=== PATIENT | female | born 1995 | race Caucasian/White ===

== ENCOUNTER 2021-08-01 17:53 | Emergency (ER) | payer OTHER, SELFPAY ==
--- NOTE | 2021-08-01 | ECG_ITS ---
Test Reason : sb Blood Pressure : / mmHG Vent. Rate : 058 BPM Atrial Rate : 058 BPM P-R Int : 166 ms QRS Dur : 078 ms QT Int : 442 ms P-R-T Axes : 078 088 072 degrees QTc Int : 433 ms Sinus bradycardia with marked sinus arrhythmia Otherwise normal ECG No previous ECGs available Referred By: Generic ED Physician Electronically Signed By:SRIDEVI TOLEDO MD
--- NOTE | ~2021-08-01 | CT_ITS ---
EXAMINATION: CT ABDOMEN AND PELVIS WITH CONTRAST CLINICAL INFORMATION: Abdominal pain COMPARISON: 01.16.2020 TECHNIQUE: Multidetector volumetric images were obtained from the superior aspect of the liver through the pubic symphysis following administration 85 mL of Omnipaque 350 intravenous contrast. Sagittal and coronal reformatted images were obtained on the technologist's workstation. Oral contrast: No This CT examination was performed using dose optimization techniques as appropriate, variously including the following: *Automated exposure control *Adjustment of mA and/or kV according to patient size (this includes techniques or standardized protocols for targeted exams where dose is matched to indication/reason for exam; i.e. extremities or head) *Use of iterative reconstruction technique DLP: 482 mGy-cm FINDINGS: LUNG BASES: The visualized lung bases are unremarkable. LIVER, GALLBLADDER, AND BILIARY TREE: The liver is normal in size, shape, and attenuation. No focal hepatic lesion or biliary ductal dilatation is present. Gallbladder unremarkable. PANCREAS: Unremarkable. SPLEEN: Unremarkable. ADRENAL GLANDS: Unremarkable. KIDNEYS AND URETERS: The kidneys are normal in size, shape, and attenuation. No hydronephrosis, hydroureter, or calculi seen. No perinephric stranding. BLADDER: Unremarkable. GASTROINTESTINAL TRACT: The small and large bowel are unremarkable. The appendix is unremarkable. ABDOMINAL WALL: No significant hernia is appreciated. LYMPH NODES: Normal. VASCULAR: Patent. There is prominent left gonadal vein and left periuterine vasculature which is nonspecific. PELVIC VISCERA: Uterus and right ovary unremarkable. Corpus luteum present within left ovary. OSSEOUS STRUCTURES: Unremarkable. CT/CT abdomen pelvis w con IMPRESSION: * No acute findings within the abdomen or pelvis. * Mild prominent left gonadal vein and left periuterine vasculature. This can be seen in association with pelvic venous congestion syndrome which can be a source of chronic pelvic pain, however is not necessarily clinically significant in this case. Fleischner guidelines were followed.
[2021-08-01 18:28] VITALS: BP 118/61; PULSE 53; RESP 18; TEMP 36.9; O2SAT 100; BMI 23.8
[2021-08-01 18:52] LABS: Appearance Urine CLOUDY; Color Urine DK YELLOW; Glucose Urine UA NEG (NEG); Hematocrit 39.7 % (37.0-47.0); Hemoglobin 13.7 g/dl (12.0-16.0); Leukocyte Esterase Urine NEG (NEG); Mean Corpuscular HGB Conc 34.5 g/dl (31.0-35.0); Mean Corpuscular Hemoglobin 29.7 pg (27.0-33.0); Mean Corpuscular Volume 86.1 fL (80.0-98.0); Mean Platelet Volume 11.6 fL (9.4-12.3); Nitrite Urine NEG (NEG); Platelet Count 321 X10*3/uL (160-400); Red Blood Count 4.61 X10*6/uL (4.20-5.50); Specific Gravity - Urine >= 1.030 (1.005-1.025); UACC Culture Trigger NO; Urine Blood NEG (NEG); Urine Ketones 40 MG/DL (NEG); Urine Protein 1+ MG/DL (NEG-TRACE)
[2021-08-01 18:54] LABS: WBC ABN SCTR FOR CBC 1
[2021-08-01 19:02] LABS: Bacteria Urine 4+ /LPF; Granular Casts Urine 0-2 /LPF; Mucus Urine 4+ /LPF; Squamous Epithelial Cell Urine 4+ /LPF; UACC CULT YES
[2021-08-01 19:18] LABS: Atypical Lymphs Percent Manual 4 % (0-6); Lymphocytes Percent Manual 42 % (20-40); Monocytes Percent Manual 2 % (2-11); Neutrophils Percent Manual 52 % (45-73)
[2021-08-01 19:19] LABS: Microcytosis 1+ (5-14) /OIF; Platelet Estimate NORMAL (NORMAL); RBC Morphology NOTED
[2021-08-01 19:20] LABS: Acanthocytes 1+ (0-2) /OIF; Burr Cells 1+ (0-2) /OIF; Platelet Morphology Comment NORMAL; Polychromasia 1+ (0-2) /OIF
[2021-08-01 19:37] LABS: Alanine Aminotransferase 11 U/L (0-31); Albumin Level 4.7 g/dL (3.5-5.0); Alkaline Phosphatase 67 U/L (39-117); Anion Gap 14 (12-20); Aspartate Amino Transferase 15 U/L (5-31); Bilirubin Total 0.7 mg/dL (0.0-1.0); Blood Urea Nitrogen 12 mg/dL (9-16); Calcium 9.9 mg/dL (8.4-10.2); Carbon Dioxide 22 mmol/L (22-29); Chloride 107 mmol/L (96-108); Creatinine Clr Calc Pharmacy 98.9; Estimated Glomerular Filt Rate > 60; Glucose Random 76 mg/dL (60-115); Potassium 3.3 mmol/L (3.3-5.1); Sodium 140 mmol/L (135-145); Total Protein 7.3 g/dL (6.5-8.0)
[2021-08-01 19:48] LABS: Atypical Lymph Absolute Manual 0.4 x10*3/uL; Lymphocytes Absolute Manual 4.1 X10*3/uL (1.2-4.9); Monocytes Absolute Manual 0.2 X10*3/uL (0.1-1.2); White Blood Count 9.7 X10*3/uL (4.8-10.8)
[2021-08-01 20:00] LABS: Band Neutrophils Percent 0 % (3-5)
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
[2021-08-01] MEDS: 0.9 % Sodium Chloride 2,000 ML 999 ML IV (22:17)
[2021-08-01] MEDS: Famotidine/PF 20 MG/2 ML VIAL IVPUSH (22:20)
[2021-08-01] MEDS: ondansetron HCL 4 MG/2 ML VIAL IVPUSH (22:20)
[2021-08-01 22:21] VITALS: BP 113/64; PULSE 50; RESP 16; O2SAT 99
[2021-08-01 22:36] LABS: HCG Quantitative < 2 mIU/mL
[2021-08-01] MEDS: iohexoL 350 MG/ML 100 ML INFUS..BTL IV (22:50)
[2021-08-01] MEDS: Lidocaine HCl Viscous 2 % 15 ML SOLUTION 10 ML MUCOUS MEM (23:23)
[2021-08-01] MEDS: Magnesium Hydrox/Alum Hydrox 30 ML ORAL.SUSP PO (23:23)
[2021-08-01 23:53] VITALS: BP 93/51; PULSE 51; RESP 18; TEMP 36.6; O2SAT 100
[2021-08-02] MEDS: Sucralfate Oral Suspension 1 GM/10 ML ORAL.SUSP PO (01:10)
== END 2021-08-02 02:00 | disposition home or self-care (01) ==
PROVIDERS: Emergency Provider Student in an Organized Health Care Education/Training Program
DX: K29.70 Gastritis, unspecified, without bleeding (principal); N81.4 Uterovaginal prolapse, unspecified; N94.89 Other specified conditions associated with female genital organs and menstrual cycle
CPT/HCPCS: 36415; 74177; 80053; 81001; 84702; 85007; 85027; 87086; 93005; 96361; 96374; 96375; 99284; J2405; Q9967

== ENCOUNTER 2021-10-11 23:42 | Emergency (ER) | payer OTHER, SELFPAY ==
[2021-10-11 23:57] VITALS: BP 139/79; PULSE 75; RESP 24; TEMP 36.6; O2SAT 97; BMI 23.3
[2021-10-12 00:11] LABS: MANUAL DIFF FLAG NO
[2021-10-12 00:14] LABS: Basophils Percent Auto 0.2 % (0-2); Eosinophils Absolute Auto 0.1 X10*3/uL (0.0-0.4); Eosinophils Percent Auto 0.7 % (0-4); Hematocrit 38.4 % (37.0-47.0); Hemoglobin 13.1 g/dl (12.0-16.0); Imm Gran Abs Auto 0.04 X10*3/uL (0.00-0.03); Imm Gran Pct Auto 0.3 % (0.0-0.4); Lymphocytes Absolute Auto 2.4 X10*3/uL (1.2-4.9); Lymphocytes Percent Auto 19.8 % (20-40); Mean Corpuscular HGB Conc 34.1 g/dl (31.0-35.0); Mean Corpuscular Volume 87.9 fL (80.0-98.0); Mean Platelet Volume 10.9 fL (9.4-12.3); Monocytes Absolute Auto 0.7 X10*3/uL (0.1-1.2); Neutrophils Absolute Auto 8.8 x10*3/uL (2.0-8.3); Platelet Count 309 X10*3/uL (160-400); Red Blood Count 4.37 X10*6/uL (4.20-5.50); Red Cell Distribution Width 13.4 % (11.0-16.0); White Blood Count 12.1 X10*3/uL (4.8-10.8)
[2021-10-12 00:29] LABS: Alanine Aminotransferase 13 U/L (0-31); Albumin Level 4.3 g/dL (3.5-5.0); Alkaline Phosphatase 56 U/L (39-117); Anion Gap 12 (12-20); Aspartate Amino Transferase 13 U/L (5-31); Bilirubin Total 0.5 mg/dL (0.0-1.0); Blood Urea Nitrogen 13 mg/dL (9-16); Calcium 9.5 mg/dL (8.4-10.2); Carbon Dioxide 24 mmol/L (22-29); Chloride 111 mmol/L (96-108); Estimated Glomerular Filt Rate > 60; Glucose Random 107 mg/dL (60-115); Potassium 3.7 mmol/L (3.3-5.1); Sodium 143 mmol/L (135-145); Total Protein 6.9 g/dL (6.5-8.0)
--- NOTE | 2021-10-12 00:31 | ED.ABDPAIN ---
HPI - Abdominal Pain General Chief Complaint: Abdominal Pain Stated Complaint: DETOX Time Seen by Provider: 10/12/21 00:30 Source: patient Mode of arrival: EMS Limitations: no limitations History of Present Illness HPI narrative: Patient with History of chronic abdominal pain with cannabinoid induced vomiting comes here for 3 days of nausea vomiting also complaining of constipation diffuse abdominal pain patient has been to different hospital multiple times for same no fever no chills Related Data Previous Rx's Medication Instructions Recorded ondansetron 4 mg disintegrating 4 mg PO Q6H PRN #10 tab 08/01/21 tablet sucralfate 100 mg/mL oral 10 ml PO QID #420 ml 08/01/21 suspension (Carafate) lorazepam 1 mg tablet (Ativan) 1 mg PO TID PRN #10 tab 10/12/21 ondansetron 4 mg disintegrating 4 mg PO Q6-8H PRN #14 tab 10/12/21 tablet pantoprazole 40 mg granules 40 mg PO DAILY #30 ea 10/12/21 delayed-release for susp in packet (Protonix) Allergies Allergy/AdvReac Type Severity Reaction Status Date / Time No Known Allergies Allergy Verified 08/01/21 18:27 Review of Systems Review of Systems Yes all other systems are reviewed and are negative [facility] Past Medical History Medical History No known health problems Social History Social History Advance Directives: No Physical Exam ED Vital Signs: Vital Signs - 24 hr 10/11/21 23:57 Temperature 97.8 F Pulse Rate 75 Respiratory Rate 24 H Blood Pressure 139/79 Pulse Oximetry 97 BMI result Body Mass Index 23.3 Appearance: Alert. Oriented X3. Anxious Eyes: No pallor/ icterus ENT: Pharynx normal. Oral Mucosa moist Neck: Normal inspection. Neck supple. CVS: Normal heart rate and rhythm. Pulses normal. Respiratory: No respiratory distress. Equal air entry bilateral, no wheezing/rales/rhonchi Abdomen: Soft and nontender. Bowel sounds are present, no mass palpable, no CVA tenderness Skin: Skin warm and dry. Normal skin color. Normal skin turgor. Extremities: No lower extremity edema. No calf tenderness Neuro: Oriented X 3. MDM - Abdominal Pain MDM Narrative Medical decision making narrative: Patient with cannabis induced vomiting anxiety came for similar episode of abdominal pain and vomiting responded to IV Ativan in the ER patient vomited coffee colored vomitus small amount no history of melena H&H stable likely from retching, . Patient H&H is stable 13.1/38.4 which is per records same in July, will watch patient in the ER for some time repeat H&H in 4 hours and dispo accordingly patient signed out to Dr. Avila pending repeat H&H Lab Data Attestation: I reviewed the patient's lab results. Result diagrams: 10/12/21 00:07 10/12/21 00:07 Labs: Lab Results 10/12/21 10/12/21 10/12/21 Range/Units 00:07 00:07 01:00 WBC 12.1 H (4.8-10.8) X10*3/uL RBC 4.37 (4.20-5.50) X10*6/uL Hgb 13.1 (12.0-16.0) g/dl Hct 38.4 (37.0-47.0) % MCV 87.9 (80.0-98.0) fL MCH 30.0 (27.0-33.0) pg MCHC 34.1 (31.0-35.0) g/dl RDW 13.4 (11.0-16.0) % Plt Count 309 (160-400) X10*3/uL MPV 10.9 (9.4-12.3) fL Immature Gran % (Auto) 0.3 (0.0-0.4) % Neut % (Auto) 73.0 (45-73) % Lymph % (Auto) 19.8 L (20-40) % [place] % (Auto) 6.0 (2-11) % Eos % (Auto) 0.7 (0-4) % Baso % (Auto) 0.2 (0-2) % Lymph # (Auto) 2.4 (1.2-4.9) X10*3/uL [place] # (Auto) 0.7 (0.1-1.2) X10*3/uL Eos # (Auto) 0.1 (0.0-0.4) X10*3/uL Baso # (Auto) 0.0 (0.0-0.2) X10*3/uL Abs Immat Gran (auto) 0.04 H (0.00-0.03) X10*3/uL Absolute Neuts (auto) 8.8 H (2.0-8.3) x10*3/uL Absolute Nucleated RBC 0.000 (0.0-0.012) X10*3/uL Nucleated RBC % (auto) 0.0 (0.0-0.2) /100WBC Sodium 143 (135-145) mmol/L Potassium 3.7 (3.3-5.1) mmol/L Chloride 111 H (96-108) mmol/L Carbon Dioxide 24 (22-29) mmol/L Anion Gap 12 (12-20) BUN 13 (9-16) mg/dL Creatinine 0.81 (0.5-1.4) mg/dL Estim Creat Clear Calc 93.0 Estimated GFR > 60 Random Glucose 107 (60-115) mg/dL Calcium 9.5 (8.4-10.2) mg/dL Total Bilirubin 0.5 (0.0-1.0) mg/dL AST 13 (5-31) U/L ALT 13 (0-31) U/L Alkaline Phosphatase 56 (39-117) U/L Total Protein 6.9 (6.5-8.0) g/dL Albumin 4.3 (3.5-5.0) g/dL Gastric Occult Blood POSITIVE H (NEG) Discharge Plan Discharge Clinical Impression: Intractable vomiting, Cannabis abuse with cannabis-induced anxiety disorder, Acute erosive gastritis Patient Disposition: Still a Patient Instructions: Acute Nausea and Vomiting (ED), Cannabis Abuse (ED) Additional Instructions: Stop using marijuana Take medication for gastritis and nausea as prescribed Prescriptions: New pantoprazole [Protonix] [address] for susp in packet 40 mg PO DAILY Qty: 30 0RF ondansetron 4 mg tablet,disintegrating 4 mg PO Q6-8H PRN (Reason: nausea and vomiting) Qty: 14 0RF lorazepam [Ativan] 1 mg tablet 1 mg PO TID PRN (Reason: anxiety) Qty: 10 0RF No Action sucralfate [Carafate] 100 mg/mL suspension 10 ml PO QID Qty: 420 0RF Rx Instructions: swish in mouth and swallow; use after food/drink ondansetron 4 mg tablet,disintegrating 4 mg PO Q6H PRN (Reason: nausea and vomiting) Qty: 10 0RF
[2021-10-12] MEDS: LORazepam 2 MG/ML VIAL IVPUSH (00:37)
--- NOTE | 2021-10-12 00:40 | PC.NURSE ---
LBM was yesterday
[2021-10-12] MEDS: 0.9 % Sodium Chloride 1,000 ML 999 ML IV ×2 (00:43→03:15)
[2021-10-12] MEDS: Prochlorperazine Edisylate 10 MG/2 ML VIAL IVPUSH (01:04)
[2021-10-12] MEDS: Famotidine/PF 20 MG/2 ML VIAL IVPUSH (01:04)
[2021-10-12 01:07] LABS: GASOB Int Neg Ctl Valid YES; GASOB Int Pos Ctl Valid YES
[2021-10-12 01:08] LABS: GASOB Lot 20512; Occult Blood Gastric POSITIVE (NEG)
--- NOTE | 2021-10-12 01:22 | PC.NURSE ---
Pt had emesis x 2. Total of approx [address] Moyer made aware Sample of vomitus collected, labeled and sent
[2021-10-12 02:57] VITALS: BP 105/55; PULSE 77; RESP 14; O2SAT 100
[2021-10-12 03:00] VITALS: TEMP 36.8
--- NOTE | 2021-10-12 03:30 | PC.NURSE ---
Pt resting on stretcher with eyes closed Breathing even and unlabored NAD Will continue to monitor
[2021-10-12 03:54] LABS: Hematocrit 38.4 % (37.0-47.0); Hemoglobin 12.9 g/dl (12.0-16.0)
== END 2021-10-12 04:11 | disposition home or self-care (01) ==
PROVIDERS: Internal Medicine; Emergency Provider Emergency Medicine
DX: K25.3 Acute gastric ulcer without hemorrhage or perforation (principal); F12.180 Cannabis abuse with cannabis-induced anxiety disorder; R11.10 Vomiting, unspecified
CPT/HCPCS: 36415; 80053; 82271; 85014; 85018; 85025; 96361; 96374; 96375; 99283; 99284; J2060

== ENCOUNTER 2021-11-10 02:58 | Emergency (ER) | payer OTHER, SELFPAY ==
--- NOTE | ~2021-11-10 | CT_ITS ---
EXAMINATION: CT ABDOMEN AND PELVIS WITHOUT CONTRAST CLINICAL INFORMATION: Abdominal pain and vomiting. Severe abdominal pain. COMPARISON: Most recent CT abdomen/pelvis dated 08/01/2021. TECHNIQUE: Multidetector volumetric imaging was performed from the superior aspect of the liver through the pubic symphysis. Sagittal and coronal reformatted images were obtained on the technologist's workstation. This CT examination was performed using dose optimization techniques as appropriate, variously including the following: *Automated exposure control *Adjustment of mA and/or kV according to patient size (this includes techniques or standardized protocols for targeted exams where dose is matched to indication/reason for exam; i.e. extremities or head) *Use of iterative reconstruction technique DLP: 399 mGy-cm FINDINGS: LUNG BASES: The visualized lung bases are unremarkable. LIVER, GALLBLADDER, AND BILIARY TREE: The liver is normal in size, shape, and attenuation. No focal hepatic lesion or biliary ductal dilatation is present. The gallbladder is unremarkable with no evidence of radiopaque gallstones, gallbladder wall thickening, or obvious pericholecystic inflammatory changes. PANCREAS: Unremarkable. SPLEEN: Unremarkable. ADRENAL GLANDS: Unremarkable. KIDNEYS AND URETERS: The kidneys are normal in size, shape, and attenuation. No hydronephrosis, hydroureter, or calculi seen. No perinephric stranding. BLADDER: Unremarkable. GASTROINTESTINAL TRACT: Evaluation limited due to underdistention and lack of oral/IV contrast. No small- or large-bowel obstruction. No significant wall thickening or inflammatory change. Unremarkable appendix. PERITONEAL CAVITY: No intra-abdominal free air or free fluid. No intra-abdominal mass or organized fluid collection/abscess formation. ABDOMINAL WALL: No significant hernia is appreciated. LYMPH NODES: No significant lymphadenopathy, however, evaluation limited without IV contrast. VASCULAR: Unremarkable. PELVIC VISCERA: Grossly unremarkable on noncontrast imaging. The previously seen vascular prominence not appreciated without IV contrast. OSSEOUS STRUCTURES: Unremarkable. CT/CT abdomen pelvis wo con IMPRESSION: No acute intra-abdominal or pelvic findings to explain the patient's pain. Fleischner guidelines were followed.
[2021-11-10 03:01] VITALS: BP 130/80; BP 135/70; PULSE 90; RESP 20; TEMP 37.1; O2SAT 100; BMI 40.3
--- NOTE | 2021-11-10 03:22 | PC.NURSE ---
pt screaming out in pain, this RN attempt to place pt IV and educated pt on importance of urine sample, pt continues to scream out in pain, pt states she is too nauseous right now MD to be made aware.
[2021-11-10] MEDS: Magnesium Hydrox/Alum Hydrox 30 ML ORAL.SUSP PO (03:33)
[2021-11-10] MEDS: Lidocaine HCl Viscous 2 % 15 ML SOLUTION 10 ML MUCOUS MEM (03:33)
[2021-11-10] MEDS: Ondansetron ODT 4 MG TAB.RAPDIS TRANSLINGU (03:33)
--- NOTE | 2021-11-10 03:36 | PC.NURSE ---
RN attempt to start IV and draw labs on patient, pt crying, curled up in a ball and states he stomach hurts too bad and would like this RN to hold off on drawing labs, pt medicated per MAR. this RN will try again.
--- NOTE | 2021-11-10 03:51 | PC.NURSE ---
pt continues to be yelling and be disrespectful to staff. Charge nurse Sheeba into assess the situation, but continues be argumentative with charge. This Clinical coordinator went into assess situation pt also continued to be argumentative and aggressive.
[2021-11-10 03:57] LABS: Basophils Absolute Auto 0.1 X10*3/uL (0.0-0.2); Basophils Percent Auto 0.4 % (0-2); Eosinophils Absolute Auto 0.1 X10*3/uL (0.0-0.4); Eosinophils Percent Auto 0.4 % (0-4); Hematocrit 40.7 % (37.0-47.0); Hemoglobin 13.8 g/dl (12.0-16.0); Imm Gran Abs Auto 0.04 X10*3/uL (0.00-0.03); Imm Gran Pct Auto 0.3 % (0.0-0.4); Lymphocytes Absolute Auto 2.8 X10*3/uL (1.2-4.9); Lymphocytes Percent Auto 21.2 % (20-40); MANUAL DIFF FLAG NO; Mean Corpuscular HGB Conc 33.9 g/dl (31.0-35.0); Mean Corpuscular Hemoglobin 29.8 pg (27.0-33.0); Mean Corpuscular Volume 87.9 fL (80.0-98.0); Mean Platelet Volume 11.1 fL (9.4-12.3); Monocytes Absolute Auto 0.6 X10*3/uL (0.1-1.2); Monocytes Percent Auto 4.3 % (2-11); Neutrophils Absolute Auto 9.8 x10*3/uL (2.0-8.3); Neutrophils Percent Auto 73.4 % (45-73); Platelet Count 388 X10*3/uL (160-400); Red Blood Count 4.63 X10*6/uL (4.20-5.50); White Blood Count 13.4 X10*3/uL (4.8-10.8)
--- NOTE | 2021-11-10 04:17 | ED.ABDPAIN ---
HPI - Abdominal Pain General Chief Complaint: Abdominal Pain Stated Complaint: Abd Pain Time Seen by Provider: 11/10/21 03:04 Source: patient Mode of arrival: EMS History of Present Illness HPI narrative: 26-year-old female, known THC smoker arrives via EMS with complaints of severe abdominal pain and also has complaints rectal bleeding and reports known hemorrhoids. Otherwise, denies any fevers or chills and states she has known stomach problems which was corroborated after review of her records with diagnoses such as erosive gastritis. Related Data Previous Rx's Medication Instructions Recorded ondansetron 4 mg disintegrating 4 mg PO Q6H PRN #10 tab 08/01/21 tablet sucralfate 100 mg/mL oral 10 ml PO QID #420 ml 08/01/21 suspension (Carafate) lorazepam 1 mg tablet (Ativan) 1 mg PO TID PRN #10 tab 10/12/21 ondansetron 4 mg disintegrating 4 mg PO Q6-8H PRN #14 tab 10/12/21 tablet pantoprazole 40 mg granules 40 mg PO DAILY #30 ea 10/12/21 delayed-release for susp in packet (Protonix) Allergies Allergy/AdvReac Type Severity Reaction Status Date / Time No Known Allergies Allergy Verified 08/01/21 18:27 Review of Systems Review of Systems Pertinent positives and negatives as stated in HPI 10 point review of systems is otherwise negative. PMFSH Past Medical History Source: nursing notes reviewed Medical History No known health problems Social History Social History Advance Directives: No Advance Directives Information Provided: No Physical Exam ED Vital Signs: Vital Signs - 24 hr 11/10/21 03:01 11/10/21 05:39 11/10/21 05:50 Temperature 98.8 F 97.6 F 98.4 F Pulse Rate 90 64 70 Respiratory Rate 20 20 18 Blood Pressure 130/80 136/86 122/88 Pulse Oximetry 100 96 100 BMI result Body Mass Index 40.3 VITAL SIGNS: Reviewed. GENERAL: Well developed, well nourished, in moderate to severe distress. HEAD: Normocephalic/atraumatic EYES: PERRLA, EOMI EARS: Ext canals without abnormality OROPHARYNX: no oral lesions noted, posterior pharynx clear LUNGS: Normal breath sounds. No adventitious sounds or accessory muscle use. SpO2<100> CARDIOVASCULAR: Regular rate and rhythm without noted murmurs ABDOMEN: Soft, epigastric tenderness on palpation without rebound, non-distended with bowel sounds. SKIN: Inspection of the skin reveals no rashes NEUROLOGIC: Alert and oriented x 4. Strength and sensation to light touch were grossly intact x 4. Course Course Course Narrative: 26-year-old female with history and clinical presentation consistent with underlying diagnosis of gastritis. Patient will be volume resuscitated, provided with antacid medications/gastritis medications as well as pain medications. On review of all investigations there are no acute findings to suggest anemia, infection as the noted leukocytosis this suspected to be secondary to stress response as patient is afebrile and urinalysis is negative for infection. Nursing staff had an accidental needlestick injury and patient agreed to being HIV and hepatitis C tested. Patient received multiple rounds fluids, antiemetics, gastritis medications and obtain an EKG to verify no QT prolongation and then administered 5 mg of Haldol IM. All investigations reviewed without acute findings of leukocytosis is likely reactive to patient's nausea and vomiting. Patient signed out to Dr. Osman. MDM - Abdominal Pain Lab Data Result diagrams: 11/10/21 03:45 11/10/21 03:45 Labs: Lab Results 11/10/21 11/10/21 11/10/21 Range/Units 03:45 03:45 03:45 WBC 13.4 H (4.8-10.8) X10*3/uL RBC 4.63 (4.20-5.50) X10*6/uL Hgb 13.8 (12.0-16.0) g/dl Hct 40.7 (37.0-47.0) % MCV 87.9 (80.0-98.0) fL MCH 29.8 (27.0-33.0) pg MCHC 33.9 (31.0-35.0) g/dl RDW 14.0 (11.0-16.0) % Plt Count 388 D (160-400) X10*3/uL MPV 11.1 (9.4-12.3) fL Immature Gran % (Auto) 0.3 (0.0-0.4) % Neut % (Auto) 73.4 H (45-73) % Lymph % (Auto) 21.2 (20-40) % [place] % (Auto) 4.3 (2-11) % Eos % (Auto) 0.4 (0-4) % Baso % (Auto) 0.4 (0-2) % Lymph # (Auto) 2.8 (1.2-4.9) X10*3/uL [place] # (Auto) 0.6 (0.1-1.2) X10*3/uL Eos # (Auto) 0.1 (0.0-0.4) X10*3/uL Baso # (Auto) 0.1 (0.0-0.2) X10*3/uL Abs Immat Gran (auto) 0.04 H (0.00-0.03) X10*3/uL Absolute Neuts (auto) 9.8 H (2.0-8.3) x10*3/uL Absolute Nucleated RBC 0.000 (0.0-0.012) X10*3/uL Nucleated RBC % (auto) 0.0 (0.0-0.2) /100WBC Sodium 143 (135-145) mmol/L Potassium 4.3 (3.3-5.1) mmol/L Chloride 111 H (96-108) mmol/L Carbon Dioxide 19 L (22-29) mmol/L Anion Gap 17 (12-20) BUN 14 (9-16) mg/dL Creatinine 0.79 (0.5-1.4) mg/dL Estim Creat Clear Calc 135.4 Estimated GFR > 60 Random Glucose 105 (60-115) mg/dL Calcium 10.1 D (8.4-10.2) mg/dL Total Bilirubin 0.5 (0.0-1.0) mg/dL Direct Bilirubin 0.2 (0.0-0.5) mg/dL AST 21 D (5-31) U/L ALT 21 (0-31) U/L Alkaline Phosphatase 63 (39-117) U/L Total Protein 7.8 (6.5-8.0) g/dL Albumin 4.7 (3.5-5.0) g/dL Amylase 49 (28-100) U/L Lipase 12 (8-78) U/L Urine Color Urine Appearance Urine pH (5.0-8.0) Ur Specific [place] (1.005-1.025) Urine Protein (NEG-TRACE) MG/DL Urine Glucose (UA) (NEG) MG/DL Urine Ketones (NEG) MG/DL Urine Blood (NEG) Urine Nitrite (NEG) Ur Leukocyte Esterase (NEG) Urine RBC (0) /HPF Urine WBC (0-4) /HPF Ur Squamous Epith Cells /LPF Urine Bacteria /LPF Hyaline Casts /LPF Urine Mucus /LPF Urine Test (NEGATIVE) Urine Opiates Screen (Not Detect) Urine Fentanyl Screen (Not Detect) Ur Barbiturates Screen (Not Detect) Ur Phencyclidine Scrn (Not Detect) Ur Amphetamines Screen (Not Detect) U Benzodiazepines Scrn (Not Detect) Urine Cocaine Screen (Not Detect) U Marijuana (THC) Screen (Not Detect) Ethyl Alcohol mg/dL HIV 1&2 Ab/P24 Ag 4thGn Nonreactive (Nonreactive) 11/10/21 11/10/21 11/10/21 Range/Units 03:45 04:09 04:09 WBC (4.8-10.8) X10*3/uL RBC (4.20-5.50) X10*6/uL Hgb (12.0-16.0) g/dl Hct (37.0-47.0) % MCV (80.0-98.0) fL MCH (27.0-33.0) pg MCHC (31.0-35.0) g/dl RDW (11.0-16.0) % Plt Count (160-400) X10*3/uL MPV (9.4-12.3) fL Immature Gran % (Auto) (0.0-0.4) % Neut % (Auto) (45-73) % Lymph % (Auto) (20-40) % [place] % (Auto) (2-11) % Eos % (Auto) (0-4) % Baso % (Auto) (0-2) % Lymph # (Auto) (1.2-4.9) X10*3/uL [place] # (Auto) (0.1-1.2) X10*3/uL Eos # (Auto) (0.0-0.4) X10*3/uL Baso # (Auto) (0.0-0.2) X10*3/uL Abs Immat Gran (auto) (0.00-0.03) X10*3/uL Absolute Neuts (auto) (2.0-8.3) x10*3/uL Absolute Nucleated RBC (0.0-0.012) X10*3/uL Nucleated RBC % (auto) (0.0-0.2) /100WBC Sodium (135-145) mmol/L Potassium (3.3-5.1) mmol/L Chloride (96-108) mmol/L Carbon Dioxide (22-29) mmol/L Anion Gap (12-20) BUN (9-16) mg/dL Creatinine (0.5-1.4) mg/dL Estim Creat Clear Calc Estimated GFR Random Glucose (60-115) mg/dL Calcium (8.4-10.2) mg/dL Total Bilirubin (0.0-1.0) mg/dL Direct Bilirubin (0.0-0.5) mg/dL AST (5-31) U/L ALT (0-31) U/L Alkaline Phosphatase (39-117) U/L Total Protein (6.5-8.0) g/dL Albumin (3.5-5.0) g/dL Amylase (28-100) U/L Lipase (8-78) U/L Urine Color YELLOW Urine Appearance HAZY Urine pH 5.5 (5.0-8.0) Ur Specific [place] >= 1.030 H (1.005-1.025) Urine Protein 1+ H (NEG-TRACE) MG/DL Urine Glucose (UA) NEG (NEG) MG/DL Urine Ketones NEG (NEG) MG/DL Urine Blood 3+ H (NEG) Urine Nitrite NEG (NEG) Ur Leukocyte Esterase NEG (NEG) Urine RBC 5-9 H (0) /HPF Urine WBC 1-4 (0-4) /HPF Ur Squamous Epith Cells 2+ /LPF Urine Bacteria 2+ /LPF Hyaline Casts 1-4 /LPF Urine Mucus 3+ /LPF Urine Test NEGATIVE (NEGATIVE) Urine Opiates Screen (Not Detect) Urine Fentanyl Screen (Not Detect) Ur Barbiturates Screen (Not Detect) Ur Phencyclidine Scrn (Not Detect) Ur Amphetamines Screen (Not Detect) U Benzodiazepines Scrn (Not Detect) Urine Cocaine Screen (Not Detect) U Marijuana (THC) Screen (Not Detect) Ethyl Alcohol < 10 mg/dL HIV 1&2 Ab/P24 Ag 4thGn (Nonreactive) 11/10/21 Range/Units 04:09 WBC (4.8-10.8) X10*3/uL RBC (4.20-5.50) X10*6/uL Hgb (12.0-16.0) g/dl Hct (37.0-47.0) % MCV (80.0-98.0) fL MCH (27.0-33.0) pg MCHC (31.0-35.0) g/dl RDW (11.0-16.0) % Plt Count (160-400) X10*3/uL MPV (9.4-12.3) fL Immature Gran % (Auto) (0.0-0.4) % Neut % (Auto) (45-73) % Lymph % (Auto) (20-40) % [place] % (Auto) (2-11) % Eos % (Auto) (0-4) % Baso % (Auto) (0-2) % Lymph # (Auto) (1.2-4.9) X10*3/uL [place] # (Auto) (0.1-1.2) X10*3/uL Eos # (Auto) (0.0-0.4) X10*3/uL Baso # (Auto) (0.0-0.2) X10*3/uL Abs Immat Gran (auto) (0.00-0.03) X10*3/uL Absolute Neuts (auto) (2.0-8.3) x10*3/uL Absolute Nucleated RBC (0.0-0.012) X10*3/uL Nucleated RBC % (auto) (0.0-0.2) /100WBC Sodium (135-145) mmol/L Potassium (3.3-5.1) mmol/L Chloride (96-108) mmol/L Carbon Dioxide (22-29) mmol/L Anion Gap (12-20) BUN (9-16) mg/dL Creatinine (0.5-1.4) mg/dL Estim Creat Clear Calc Estimated GFR Random Glucose (60-115) mg/dL Calcium (8.4-10.2) mg/dL Total Bilirubin (0.0-1.0) mg/dL Direct Bilirubin (0.0-0.5) mg/dL AST (5-31) U/L ALT (0-31) U/L Alkaline Phosphatase (39-117) U/L Total Protein (6.5-8.0) g/dL Albumin (3.5-5.0) g/dL Amylase (28-100) U/L Lipase (8-78) U/L Urine Color Urine Appearance Urine pH (5.0-8.0) Ur Specific [place] (1.005-1.025) Urine Protein (NEG-TRACE) MG/DL Urine Glucose (UA) (NEG) MG/DL Urine Ketones (NEG) MG/DL Urine Blood (NEG) Urine Nitrite (NEG) Ur Leukocyte Esterase (NEG) Urine RBC (0) /HPF Urine WBC (0-4) /HPF Ur Squamous Epith Cells /LPF Urine Bacteria /LPF Hyaline Casts /LPF Urine Mucus /LPF Urine Test (NEGATIVE) Urine Opiates Screen Not Detected (Not Detect) Urine Fentanyl Screen Not Detected (Not Detect) Ur Barbiturates Screen Not Detected (Not Detect) Ur Phencyclidine Scrn Not Detected (Not Detect) Ur Amphetamines Screen Not Detected (Not Detect) U Benzodiazepines Scrn Not Detected (Not Detect) Urine Cocaine Screen Not Detected (Not Detect) U Marijuana (THC) Screen POSITIVE H (Not Detect) Ethyl Alcohol mg/dL HIV 1&2 Ab/P24 Ag 4thGn (Nonreactive) ECG Data Attestation: I personally reviewed and interpreted this ECG as follows: Prior ECG tracings: available for review Interpretation: Sinus rhythm, HR-65, no STEMI, OK/QRS/QTC are within normal limits Discharge Plan Discharge Clinical Impression: Marijuana use, Cyclical vomiting, Gastritis Patient Disposition: Still a Patient Instructions: Cyclic Vomiting Syndrome (ED) Prescriptions: No Action sucralfate [Carafate] 100 mg/mL suspension 10 ml PO QID Qty: 420 0RF Rx Instructions: swish in mouth and swallow; use after food/drink ondansetron 4 mg tablet,disintegrating 4 mg PO Q6H PRN (Reason: nausea and vomiting) Qty: 10 0RF pantoprazole [Protonix] [address] for susp in packet 40 mg PO DAILY Qty: 30 0RF ondansetron 4 mg tablet,disintegrating 4 mg PO Q6-8H PRN (Reason: nausea and vomiting) Qty: 14 0RF lorazepam [Ativan] 1 mg tablet 1 mg PO TID PRN (Reason: anxiety) Qty: 10 0RF
[2021-11-10 04:20] LABS: Alanine Aminotransferase 21 U/L (0-31); Albumin Level 4.7 g/dL (3.5-5.0); Alkaline Phosphatase 63 U/L (39-117); Anion Gap 17 (12-20); Aspartate Amino Transferase 21 U/L (5-31); Bilirubin Total 0.5 mg/dL (0.0-1.0); Blood Urea Nitrogen 14 mg/dL (9-16); Calcium 10.1 mg/dL (8.4-10.2); Carbon Dioxide 19 mmol/L (22-29); Chloride 111 mmol/L (96-108); Creatinine Clr Calc Pharmacy 135.4; Estimated Glomerular Filt Rate > 60; Glucose Random 105 mg/dL (60-115); Lipase 12 U/L (8-78); Potassium 4.3 mmol/L (3.3-5.1); Sodium 143 mmol/L (135-145); Total Protein 7.8 g/dL (6.5-8.0)
[2021-11-10] MEDS: 0.9 % Sodium Chloride 1,000 ML 999 ML IV (04:21)
[2021-11-10] MEDS: Famotidine/PF 20 MG/2 ML VIAL IVPUSH (04:21)
[2021-11-10] MEDS: Sucralfate Oral Suspension 1 GM/10 ML ORAL.SUSP PO (04:21)
[2021-11-10 04:22] LABS: Appearance Urine HAZY; Color Urine YELLOW; Glucose Urine UA NEG (NEG); Leukocyte Esterase Urine NEG (NEG); Nitrite Urine NEG (NEG); PH 5.5 (5.0-8.0); Specific Gravity - Urine >= 1.030 (1.005-1.025); UACC Culture Trigger NO; Urine Blood 3+ (NEG); Urine Ketones NEG (NEG); Urine Protein 1+ MG/DL (NEG-TRACE)
[2021-11-10 04:24] LABS: UPreg QC Valid YES; Urine Pregnancy NEGATIVE (NEGATIVE)
[2021-11-10 04:28] LABS: Squamous Epithelial Cell Urine 2+ /LPF
[2021-11-10 04:29] LABS: Bacteria Urine 2+ /LPF; Mucus Urine 3+ /LPF
[2021-11-10 04:34] LABS: Amphetamine Screen Urine Not Detected (Not Detect); Barbiturates, Urine Not Detected (Not Detect); Benzodiazepines Screen Urine Not Detected (Not Detect); Cannabinoid Screen Urine POSITIVE (Not Detect); Cocaine Screen Urine Not Detected (Not Detect); Fentanyl, urine Not Detected (Not Detect); Opiate Screen Urine Not Detected (Not Detect); Phencyclidine Screen Urine Not Detected (Not Detect)
[2021-11-10] MEDS: Ketorolac Tromethamine 30 MG/ML VIAL 15 MG IVPUSH (04:59)
[2021-11-10] MEDS: diphenhydrAMINE HCL 50 MG/ML VIAL 25 MG IVPUSH (04:59)
[2021-11-10] MEDS: Metoclopramide HCl 10 MG/2 ML VIAL IVPUSH (05:00)
--- NOTE | 2021-11-10 05:11 | PC.NURSE ---
This RN had accidental finger stick on pt used urine cup, and charge aware. pt verbal consent to draw panel,
[2021-11-10 05:39] VITALS: BP 136/86; PULSE 64; RESP 20; TEMP 36.4; O2SAT 96
[2021-11-10 05:50] VITALS: BP 122/88; PULSE 70; RESP 18; TEMP 36.9; O2SAT 100
[2021-11-10 06:09] LABS: Amylase 49 U/L (28-100)
[2021-11-10 06:10] LABS: Ethanol < 10 mg/dL
[2021-11-10 06:12] LABS: Bilirubin Direct 0.2 mg/dL (0.0-0.5)
[2021-11-10] MEDS: LORazepam 2 MG/ML VIAL 0.5 MG IVPUSH (06:31)
[2021-11-10 06:38] LABS: HIV AB/AG Nonreactive (Nonreactive)
--- NOTE | 2021-11-10 06:38 | ECG_ITS ---
Test Reason : NAUSEA Blood Pressure : / mmHG Vent. Rate : 065 BPM Atrial Rate : 065 BPM P-R Int : 102 ms QRS Dur : 092 ms QT Int : 452 ms P-R-T Axes : 027 079 077 degrees QTc Int : 470 ms Sinus rhythm with marked sinus arrhythmia with short OR Otherwise normal ECG When compared with ECG of 01-AUG-2021 18:48, No significant change was found Referred By: Ceci Aguilar Electronically Signed By:Derrick Haddad
[2021-11-10] MEDS: Prochlorperazine Edisylate 10 MG/2 ML VIAL IVPUSH (06:40)
[2021-11-10] MEDS: Haloperidol Lactate 5 MG/ML VIAL IM (07:10)
[2021-11-10 07:54] VITALS: BP 107/62; PULSE 51; RESP 18; TEMP 36.7; O2SAT 98
[2021-11-10 08:00] VITALS: BP 103/65; PULSE 53; RESP 20; O2SAT 100
[2021-11-10] MEDS: Morphine Sulfate 4 MG/ML CARTRIDGE IVPUSH (09:50)
[2021-11-10 10:17] LABS: COVID-19 Test Negative (Negative); IDNOW Serial# 16C4AD1C; Influenza A Negative (Negative); Influenza B2 Negative (Negative)
--- NOTE | 2021-11-10 10:58 | PC.NURSE ---
Pt provided with crackers and gingerale for PO trial. pt states that her pain has improved a bit and verbalizes some nausea.
[2021-11-10 11:52] VITALS: BP 97/56; PULSE 51; RESP 20; O2SAT 95
[2021-11-13 08:10] LABS: HIV Num 1 0.07 S/CO (0.00-0.99)
[2021-11-13 09:40] LABS: HBS Num1 1.09 mIU/mL (0-7.99); HBc Num1 0.09 S/CO (0.00-0.79); HBsAGNum1 0.19 S/CO (0.00-0.99); Hepatitis B Core Antibody Nonreactive (Nonreactive); Hepatitis B Surface Antigen Negative (Negative); ~HepC Num1 0.19 S/CO (0.00-0.79); ~Hepatitis B Surface Antibody NONREACTIVE (Nonreactive); ~Hepatitis C Antibody Nonreactive (Nonreactive)
== END 2021-11-10 12:05 | disposition home or self-care (01) ==
PROVIDERS: Student in an Organized Health Care Education/Training Program; Emergency Provider Emergency Medicine
DX: K29.70 Gastritis, unspecified, without bleeding (principal); R10.9 Unspecified abdominal pain; F12.90 Cannabis use, unspecified, uncomplicated; R11.15 Cyclical vomiting syndrome unrelated to migraine; Z20.822 Contact with and (suspected) exposure to COVID-19; Z79.899 Other long term (current) drug therapy
CPT/HCPCS: 36415; 74176; 80053; 80307; 81001; 81025; 82077; 82150; 82248; 83690; 85025; 86704; 86706; 86803; 87340; 87389; 87502; 87635; 93005; 96374; 96376; 99284; 99285; J1200; J1885; J2060; J2270; J2765

== ENCOUNTER 2022-11-03 00:30 | Emergency (ER) | payer MEDICAID, SELFPAY ==
[2022-11-03 00:34] VITALS: BP 129/50; PULSE 114; RESP 20; TEMP 36.6; O2SAT 98; BMI 21.0
[2022-11-03 00:50] LABS: MANUAL DIFF FLAG NO
[2022-11-03 00:52] LABS: Basophils Absolute Auto 0.1 X10*3/uL (0.0-0.2); Basophils Percent Auto 0.3 % (0-2); Eosinophils Absolute Auto 0.1 X10*3/uL (0.0-0.4); Eosinophils Percent Auto 0.7 % (0-4); Hematocrit 33.8 % (37.0-47.0); Hemoglobin 11.7 g/dl (12.0-16.0); Imm Gran Abs Auto 0.07 X10*3/uL (0.00-0.03); Imm Gran Pct Auto 0.5 % (0.0-0.4); Lymphocytes Absolute Auto 3.7 X10*3/uL (1.2-4.9); Mean Corpuscular HGB Conc 34.6 g/dl (31.0-35.0); Mean Corpuscular Volume 83.7 fL (80.0-98.0); Mean Platelet Volume 9.6 fL (9.4-12.3); Monocytes Absolute Auto 0.9 X10*3/uL (0.1-1.2); Monocytes Percent Auto 5.6 % (2-11); Neutrophils Absolute Auto 10.5 x10*3/uL (2.0-8.3); Neutrophils Percent Auto 68.9 % (45-73); Platelet Count 330 X10*3/uL (160-400); Red Blood Count 4.04 X10*6/uL (4.20-5.50); Red Cell Distribution Width 15.2 % (11.0-16.0); White Blood Count 15.2 X10*3/uL (4.8-10.8)
[2022-11-03 01:05] LABS: Anion Gap 12 (12-20); Blood Urea Nitrogen 12 mg/dL (9-16); Calcium 8.9 mg/dL (8.4-10.2); Carbon Dioxide 23 mmol/L (22-29); Chloride 108 mmol/L (96-108); Creatinine Clr Calc Pharmacy 126.7; Estimated Glomerular Filt Rate > 60; Glucose Random 102 mg/dL (60-115); Sodium 139 mmol/L (135-145)
--- NOTE | 2022-11-03 01:27 | ED.ABDPAIN ---
HPI - Abdominal Pain General Chief Complaint: Abdominal Pain Stated Complaint: cant defecate, nausea Time Seen by Provider: 11/03/22 01:17 Source: patient Mode of arrival: ambulatory Limitations: no limitations History of Present Illness HPI narrative: Patient comes to the emergency room complaining of constipation, denies abdominal pain.. Patient states that for the last 2 years she has been having chronic constipation. Patient states that for about 2 years, she has not had a good bowel movements. But this time, patient has not been able to move her bowels for several days. Patient states she tried digital rectal stimulation to help herself have a bowel movement but did not work. Patient has tried milk of magnesia, Dulcolax, suppositories without any relief. Patient denies nausea vomiting diarrhea Related Data Previous Rx's Medication Instructions Recorded ondansetron 4 mg disintegrating 4 mg PO Q6H PRN nausea and 08/01/21 tablet vomiting #10 tabs sucralfate 100 mg/mL oral 10 ml PO QID #420 mL 08/01/21 suspension (Carafate) lorazepam 1 mg tablet (Ativan) 1 mg PO TID PRN anxiety #10 tabs 10/12/21 ondansetron 4 mg disintegrating 4 mg PO Q6-8H PRN nausea and 10/12/21 tablet vomiting #14 tabs pantoprazole 40 mg granules 40 mg PO DAILY #30 ea 10/12/21 delayed-release for susp in packet (Protonix) ondansetron 4 mg disintegrating 4 mg PO Q8H PRN nausea and 11/10/21 tablet vomiting #20 tabs promethazine 25 mg rectal 25 mg [place] Q6H PRN nausea and 11/10/21 suppository vomiting #12 ea PNV 153-FA 400 mcg-om3 35 mg-dha 1 tab PO DAILY 30 days #30 tabs 11/03/22 25 mg-epa 5 mg-fish oil chew tablet ( Gummies) mineral oil 118 ml [place] DAILY PRN constipation 11/03/22 #133 mL Allergies Allergy/AdvReac Type Severity Reaction Status Date / Time No Known Allergies Allergy Verified 08/01/21 18:27 Review of Systems Review of Systems Constitutional : No Weight loss, No Fever, No Chills, No Night Sweats, No Fatigue, No Malaise ENT/Mouth : No Hearing loss, No Ear Pain, No Nasal Congestion, No Sinus Pain, No Hoarseness, No sore throat, No Rhinorrhea, No Swallowing Difficulty Eyes: No Eye Pain, No Swelling, No Redness, No Foreign Body, No Discharge, No Vision Changes Cardiovascular : No Chest Pain, No SOB, No Dyspnea on Exertion, No Orthopnea, No Edema, No Palpitations Respiratory : No Cough, No Sputum, No Wheezing, No Smoke Exposure, No Dyspnea Gastrointestinal : No Nausea, No Vomiting, No Diarrhea, complaining of Constipation, No abdominal Pain, No Hematochezia, No Melena Genitourinary : no irregular bleeding, No Dysuria, No Urinary Frequency, No Hematuria, No Urinary Incontinence, No Urgency, No Flank Pain, No Urinary Flow Changes, No Hesitancy Musculoskeletal : No joint pain, No Myalgias, No Joint Swelling Skin : No Skin Lesions, No rash Neuro : No Weakness, No Numbness, No Paresthesias, No Loss of Consciousness, No Dizziness, No Headache Psych : No Anxiety/Panic, No Depression, No SI/HI/AH/VH, No Social Issues, Heme/Lymph: No Bruising, No Bleeding,No Lymphadenopathy Endocrine : No Polyuria, No Polydipsia, No Temperature Intolerance [facility] Past Medical History Medical History (Updated 11/03/22 @ 03:46 by Alyssa Avila MD) Chronic constipation No known health problems Social History Social History Advance Directives: No Advance Directives Information Provided: No Physical Exam ED Vital Signs: Vital Signs - 24 hr 11/03/22 00:34 Temperature 97.8 F Pulse Rate 114 H Respiratory Rate 20 Blood Pressure 129/50 L Pulse Oximetry 98 Oxygen Delivery Method Room Air BMI result Body Mass Index 21.0 Const Other: Appearance: Alert. Oriented X3. No acute distress. Eyes: Pupils equal, round and reactive to light. ENT: Pharynx normal. Neck: Normal inspection. Neck supple. No lymph nodes noted. No crepitus CVS: Normal heart rate and rhythm. Pulses normal. Normal S1 and S2 Respiratory: No respiratory distress. Breath sounds normal. No Wheezing. No rales Abdomen: Soft and nontender. No rigidity. No distention. Skin: Skin warm and dry. Normal skin color. Normal skin turgor. Extremities: No lower extremity edema. No Lacerations. No Rash Neuro: Oriented X 3. No motor deficit. No sensory deficit. Moving all extremities. No slurred speech. CN 2 through 12 grossly intact Psych: calm, cooperative, teary Course Course Course Narrative: -KUB pending Medical Decision Making Medical Decision Making MDM Narrative: -patient's hCG is positive, approximately 6-7 weeks of gestational age. Patient very surprised. -KUB has been canceled -patient will be sent home with a prescription enema and vitamins. Patient states she has an OB Gyne and will follow-up with them. Lab Data 11/03/22 00:46 11/03/22 00:46 Labs: Lab Results 11/03/22 11/03/22 11/03/22 Range/Units 00:46 00:46 02:57 WBC 15.2 H (4.8-10.8) X10*3/uL RBC 4.04 L (4.20-5.50) X10*6/uL Hgb 11.7 L (12.0-16.0) g/dl Hct 33.8 L (37.0-47.0) % MCV 83.7 (80.0-98.0) fL MCH 29.0 (27.0-33.0) pg MCHC 34.6 (31.0-35.0) g/dl RDW 15.2 (11.0-16.0) % Plt Count 330 (160-400) X10*3/uL MPV 9.6 (9.4-12.3) fL Immature Gran % (Auto) 0.5 H (0.0-0.4) % Neut % (Auto) 68.9 (45-73) % Lymph % (Auto) 24.0 (20-40) % [place] % (Auto) 5.6 (2-11) % Eos % (Auto) 0.7 (0-4) % Baso % (Auto) 0.3 (0-2) % Lymph # (Auto) 3.7 (1.2-4.9) X10*3/uL [place] # (Auto) 0.9 (0.1-1.2) X10*3/uL Eos # (Auto) 0.1 (0.0-0.4) X10*3/uL Baso # (Auto) 0.1 (0.0-0.2) X10*3/uL Abs Immat Gran (auto) 0.07 H (0.00-0.03) X10*3/uL Absolute Neuts (auto) 10.5 H (2.0-8.3) x10*3/uL Absolute Nucleated RBC 0.000 (0.0-0.012) X10*3/uL Nucleated RBC % (auto) 0.0 (0.0-0.2) /100WBC Sodium 139 (135-145) mmol/L Potassium 4.0 (3.3-5.1) mmol/L Chloride 108 (96-108) mmol/L Carbon Dioxide 23 (22-29) mmol/L Anion Gap 12 (12-20) BUN 12 (9-16) mg/dL Creatinine 0.61 (0.5-1.4) mg/dL Estim Creat Clear Calc 126.7 Estimated GFR > 60 Random Glucose 102 (60-115) mg/dL Calcium 8.9 D (8.4-10.2) mg/dL Beta HCG, Quant 30822 mIU/mL Urine Color Yellow Urine Appearance Cloudy Urine pH 8.0 (5.0-9.0) Ur Specific [place] 1.020 (1.005-1.025) Urine Protein Negative (Neg-Trace) mg/dL Urine Glucose (UA) Negative (Negative) mg/dL Urine Ketones Negative (Negative) mg/dL Urine Blood Negative (Negative) Urine Nitrite Negative (Negative) Ur Leukocyte Esterase Trace H (Negative) Urine RBC 0-2 (0-2) /HPF Urine WBC 0-5 (0-5) /HPF Ur Squamous Epith Cells 3-5 (0-2) /HPF Urine Bacteria None Seen (None Seen) Hyaline Casts 0-2 (0-2) /LPF Urine Test (NEGATIVE) 11/03/22 Range/Units 02:57 WBC (4.8-10.8) X10*3/uL RBC (4.20-5.50) X10*6/uL Hgb (12.0-16.0) g/dl Hct (37.0-47.0) % MCV (80.0-98.0) fL MCH (27.0-33.0) pg MCHC (31.0-35.0) g/dl RDW (11.0-16.0) % Plt Count (160-400) X10*3/uL MPV (9.4-12.3) fL Immature Gran % (Auto) (0.0-0.4) % Neut % (Auto) (45-73) % Lymph % (Auto) (20-40) % [place] % (Auto) (2-11) % Eos % (Auto) (0-4) % Baso % (Auto) (0-2) % Lymph # (Auto) (1.2-4.9) X10*3/uL [place] # (Auto) (0.1-1.2) X10*3/uL Eos # (Auto) (0.0-0.4) X10*3/uL Baso # (Auto) (0.0-0.2) X10*3/uL Abs Immat Gran (auto) (0.00-0.03) X10*3/uL Absolute Neuts (auto) (2.0-8.3) x10*3/uL Absolute Nucleated RBC (0.0-0.012) X10*3/uL Nucleated RBC % (auto) (0.0-0.2) /100WBC Sodium (135-145) mmol/L Potassium (3.3-5.1) mmol/L Chloride (96-108) mmol/L Carbon Dioxide (22-29) mmol/L Anion Gap (12-20) BUN (9-16) mg/dL Creatinine (0.5-1.4) mg/dL Estim Creat Clear Calc Estimated GFR Random Glucose (60-115) mg/dL Calcium (8.4-10.2) mg/dL Beta HCG, Quant mIU/mL Urine Color Urine Appearance Urine pH (5.0-9.0) Ur Specific [place] (1.005-1.025) Urine Protein (Neg-Trace) mg/dL Urine Glucose (UA) (Negative) mg/dL Urine Ketones (Negative) mg/dL Urine Blood (Negative) Urine Nitrite (Negative) Ur Leukocyte Esterase (Negative) Urine RBC (0-2) /HPF Urine WBC (0-5) /HPF Ur Squamous Epith Cells (0-2) /HPF Urine Bacteria (None Seen) Hyaline Casts (0-2) /LPF Urine Test POSITIVE H (NEGATIVE) Discharge Plan Discharge Clinical Impression: Chronic constipation, Patient Disposition: Home, Self-Care Instructions: Constipation (ED) Additional Instructions: Please follow-up with your primary care physician tomorrow. If you have any worsening or new symptoms, please return to the emergency room or call 911 Prescriptions: New mineral oil Enema 118 ml [place] DAILY PRN (Reason: constipation) Qty: 133 3RF Rx Instructions: discard any unused portion Gummies 400 mcg-35 mg- 25 mg-5 mg tablet,chewable 1 tab PO DAILY 30 Days Qty: 30 0RF No Action sucralfate [Carafate] 100 mg/mL suspension 10 ml PO QID Qty: 420 0RF Rx Instructions: swish in mouth and swallow; use after food/drink ondansetron 4 mg tablet,disintegrating 4 mg PO Q6H PRN (Reason: nausea and vomiting) Qty: 10 0RF pantoprazole [Protonix] [address] for susp in packet 40 mg PO DAILY Qty: 30 0RF ondansetron 4 mg tablet,disintegrating 4 mg PO Q6-8H PRN (Reason: nausea and vomiting) Qty: 14 0RF lorazepam [Ativan] 1 mg tablet 1 mg PO TID PRN (Reason: anxiety) Qty: 10 0RF promethazine 25 mg suppository 25 mg [place] Q6H PRN (Reason: nausea and vomiting) Qty: 12 0RF ondansetron 4 mg tablet,disintegrating 4 mg PO Q8H PRN (Reason: nausea and vomiting) Qty: 20 0RF
[2022-11-03 03:10] LABS: Appearance Urine Cloudy; Color Urine Yellow; Glucose Urine UA Negative (Negative); Leukocyte Esterase Urine Trace (Negative); Nitrite Urine Negative (Negative); UMIC TRIGGER UACC YES; UPreg QC Valid YES; Urine Blood Negative (Negative); Urine Ketones Negative (Negative); Urine Pregnancy POSITIVE (NEGATIVE); Urine Protein Negative (Neg-Trace)
[2022-11-03 03:33] LABS: Bacteria Urine None Seen (None Seen); Hyaline Casts Urine 0-2 /LPF (0-2); RBC Urine 0-2 /HPF (0-2); WBC Urine 0-5 /HPF (0-5)
[2022-11-03 03:38] LABS: HCG Quantitative 36550 mIU/mL
--- NOTE | 2022-11-03 04:06 | PC.NURSE ---
late entry- this rn assumed care of pt from waiting room @ 0100. pt calm and cooperative. urine sample obtained and sent down to lab
[2022-11-03 04:07] VITALS: BP 104/60; PULSE 70; RESP 17; TEMP 37.3; O2SAT 100
--- NOTE | 2022-11-03 04:26 | PC.NURSE ---
pt calm and cooperative. vs within normal range for pt. pt ambulatory. pt provided with discharge packet. pt verbalized understanding of discharge plan
== END 2022-11-03 04:27 | disposition home or self-care (01) ==
PROVIDERS: Emergency Provider Emergency Medicine
DX: O26.91 Pregnancy related conditions, unspecified, first trimester (principal); Z3A.01 Less than 8 weeks gestation of pregnancy; Z79.899 Other long term (current) drug therapy
CPT/HCPCS: 36415; 80048; 81001; 81025; 84702; 85025; 99284